=== PATIENT | female | born 1965 | race American Indian/Alaskan Native ===

== ENCOUNTER 2018-09-09 08:12 | Day surgery (SDC) | payer OTHER ==
[2018-09-09] MEDS ORDERED: PROAIR IH ONE (08:50)
[2018-09-09] MEDS ORDERED: DIPRIVAN 10 MG/ML IV ONE ×2 (08:50)
[2018-09-09] MEDS ORDERED: NACL 0.9% 1000 ML 1,000 ML IV SCH (09:00)
--- NOTE | 2018-09-09 09:02 | Anesthesia Day of Surgery ---
Anesthesia Day of Surgery - Day of Surgery Patient Examined: Yes Patient H&P Reviewed: Yes Patient is NPO: Yes
--- NOTE | 2018-09-09 09:02 | Anesthesia Consultation ---
Anesthesia Consult and Med Hx Date of service: 09/09/18 - Airway Anesthetic Teeth Evaluation: Poor (some missing, broken teeth) ROM Head & Neck: Adequate Mental/Hyoid Distance: Adequate Mallampati Class: Class II Intubation Access Assessment: Probably Good - Pre-Operative Health Status ASA Pre-Surgery Classification: ASA2 Proposed Anesthetic Plan: MAC - Pulmonary Hx Asthma: Yes (some weezing) - Cardiovascular System Hx Hypertension: Yes
--- NOTE | 2018-09-09 09:44 | Operative Report ---
Operative Report Operative Report: DOS: 09/09/18 SURGEON: Eduardo Sanders MD EGD with biopsy and dilation REPORT PREOPERATIVE DIAGNOSIS and POSTOPERATIVE DIAGNOSIS: dysphagia ESTIMATED BLOOD LOSS: minimal DESCRIPTION OF PROCEDURE: A high-resolution EGD scope was passed through the oropharynx, esophagus, stomach, and second portion of duodenum. The scope was carefully withdrawn. Retroflexion was performed in the stomach. At the end of the procedure, the scope was cleaned using normal technique. Vital signs monitored continuously throughout. SEDATION: Provided by [facility]. COMPLICATIONS: None. FINDINGS: * Normal Duodenum * Moderate gastritis, Biopsies were taken to rule out H. Pylori infection. A total of 5 biopsies were taken, 2 from the antrum, 1 from the incisura, 2 from the body. * GE junction normal at 40cm from incisors * Normal exam for dysphagia, biopsies obtained from the mid esophagus to r/o Eosinophilic esophagitis. Then, a guidewire was placed through the scope and a 51Fr Savory was used to dilate the esophagus. The scope was reinserted, and there were no tears * Remainder of the exam was normal RECOMMENDATIONS: * f/u path results * return to clinic in 2-4 weeks for followup CC note to PCP Dr. Young Bernabe M.D.
--- NOTE | 2018-09-09 09:45 | Operative Report ---
Operative Report Operative Report: DOS: 09/09/18 SURGEON: Eduardo Sanders MD COLONOSCOPY with snare polypectomy REPORT PREOPERATIVE AND POSTOPERATIVE DIAGNOSIS: PH colon polyps DESCRIPTION OF PROCEDURE: The colonoscope was passed to the cecum as identified by the ileocecal valve and appendiceal orifice. Scope was carefully withdrawn. Retroflexion was performed in the rectum. At the end of procedure, the scope was cleaned using normal technique. Vital signs monitored continuously throughout. SEDATION: Provided by [facility]. Quality of the prep was fair COMPLICATIONS: None. ESTIMATED BLOOD LOSS: minimal FINDINGS: * Moderate diverticulosis throughout the entire colon * 4mm sessile polyp in the transverse colon removed by cold snare polypectomy * 3mm sessile polyp in the ascending colon removed by cold snare polypectomy * Medium internal hemorrhoids * Remainder of the exam was normal RECOMMENDATIONS: Repeat colonoscopy in 3 years for surveillance with an extended colon cleanse CC note to PCP Dr. Young Bernabe M.D.
[2018-09-09] MEDS ORDERED: XYLOCAINE MPF 2% ONE (10:00)
[2018-09-09 10:15] VITALS: BP 115/76
== END 2018-09-09 08:13 | disposition home or self-care (01) ==
LOC: GIO 08:12
PROVIDERS: ATTEND Student in an Organized Health Care Education/Training Program
DX: Z12.11 Encounter for screening for malignant neoplasm of colon (principal); D12.3 Benign neoplasm of transverse colon; D12.2 Benign neoplasm of ascending colon; K21.0 Gastro-esophageal reflux disease with esophagitis; K64.8 Other hemorrhoids; K22.70 Barrett's esophagus without dysplasia; K29.70 Gastritis, unspecified, without bleeding; I10 Essential (primary) hypertension; J45.909 Unspecified asthma, uncomplicated; M19.90 Unspecified osteoarthritis, unspecified site; F32.9 Major depressive disorder, single episode, unspecified; Z96.651 Presence of right artificial knee joint; Z98.890 Other specified postprocedural states; Z79.899 Other long term (current) drug therapy; Z88.8 Allergy status to other drugs, medicaments and biological substances
CPT/HCPCS: 43239; 43248; 45385; 88305; 88342; C1769; J2704; J7030